=== PATIENT | female | born 1970 | race Caucasian/White ===

== ENCOUNTER 2019-12-16 17:44 | Emergency (ER) | payer MEDICAID ==
[~2019-12-16] VITALS: Ht 157.5 cm; Wt 103.0 kg
[2019-12-16 18:04] VITALS: Ht 157.5 cm; Wt 103.0 kg
[2019-12-16 21:13] VITALS: BP 131/82
== END 2019-12-16 21:13 | disposition home or self-care (01) ==
LOC: ED 17:44
DX: R22.2 Localized swelling, mass and lump, trunk (principal); M54.6 Pain in thoracic spine
CPT/HCPCS: J1885